=== PATIENT | female | born 1990 | race Two or more races ===

== ENCOUNTER 2016-10-17 08:09 | Emergency (ER) | payer OTHER, MEDICAID ==
[2016-10-17] MEDS ORDERED: MORPHINE SULFATE 4 MG/ML SYRINGE ONE (08:58)
[2016-10-17 09:18] LABS: ABSOLUTE NEUTROPHIL COUNT 4.3 K/mm3 (1.8-7.7); BASO # 0.1 K/mm3 (0.0-0.2); BASO % 0.9 % (0.2-1.0); EOS # 0.1 (0.0-0.5); HEMATOCRIT 42.3 % (37.0-47.0); HEMOGLOBIN 14.1 gm/l (12.0-16.0); IMM NEUT% 0.3 % (0-1); LYMPH # 2.1 (1.0-4.8); LYMPH % 29.2 % (15-45); MEAN CELL VOLUME 86.9 fl (81.0-99.0); MEAN CORPUSCULAR HGB CONC 33.3 g/dl (33.0-37.0); MEAN PLATELET VOLUME 9.9 fl (7.4-10.4); MONO # 0.4 (0.0-0.8); MONO % 6.3 % (4-12); NEUT % 61.3 % (43-75); PLATELET COUNT 217 K/mm3 (130-400); RED CELL DISTRIBUTION WIDTH 12.8 % (11.5-14.5)
[2016-10-17 09:38] LABS: CALCIUM 9.6 mg/dL (8.6-10.3)
--- NOTE | 2016-10-17 10:22 | CT ---
C-SPINE W/O CON COMPARISON: None. HISTORY: Midline neck pain that radiates to the right shoulder and arm. Technique: Using a [employer] [address] scanner, images obtained through the cervical spine. An automated dose reduction technique was used to minimize patient radiation dose. Dose information: CTDIvol (mGy) 7.80 DLP(mGycm): 155.20 FINDINGS: Vertebral alignment: Mild kyphosis. C1-2 alignment: Normal. Craniocervical junction: Normal. Vertebral bodies: Normal. Intervertebral discs: Normal. Spinal canal: Normal. Facet joints and posterior arches: Normal Prevertebral soft tissues: Normal Lung apices and superior mediastinum: Normal. Airway: Normal. C1-2: Normal. C2-3: Normal. C3-4: Normal. C4-5: Normal. C5-6: Normal. C6-7: Normal. C7-T1: Normal. IMPRESSION: Mild cervical kyphosis. Otherwise normal study. Given the patient's radicular symptoms, a disc herniation is suspected and this would required MRI to help in the diagnosis. The results were discussed with Maco Robbins M.D. 10/17/2016 at 10:19
[2016-10-17] MEDS ORDERED: DEXAMETHASONE SOD PHOS 10 MG/1 ML VIAL ONE (10:45)
== END 2016-10-17 11:24 | disposition home or self-care (01) ==
LOC: ED 08:09
DX: M54.2 Cervicalgia (principal); R20.0 Anesthesia of skin; I10 Essential (primary) hypertension; W00.0XXA Fall on same level due to ice and snow, initial encounter; Y92.9 Unspecified place or not applicable
CPT/HCPCS: 84703; 85025; 80048; 72125; 96375; 99284; 96374; 99285; J1100; J2270